=== PATIENT | male | born 1985 | race Hispanic/Latino ===

== ENCOUNTER 2023-01-25 18:07 | Emergency (ER) | payer SELFPAY ==
[~2023-01-25] VITALS: Ht 182.9 cm; Wt 142.9 kg
[2023-01-25] MEDS ORDERED: VALTREX1000 MG PO (18:31)
[2023-01-25] MEDS ORDERED: MEDROL4 M2 PO (18:31)
[2023-01-25 19:56] VITALS: BP 161/80
== END 2023-01-25 20:02 | disposition home or self-care (01) ==
LOC: ER 18:12
DX: G51.0 Bell's palsy (principal)
CPT/HCPCS: 70450; 99283